=== PATIENT | female | born 1975 | race Caucasian/White ===

== ENCOUNTER → 2023-06-26 14:54 | Outpatient (REF) | payer OTHER, SELFPAY | LOC: HWRAD 14:54 | PROVIDERS: ATTENDING PHYSICIAN Obstetrics & Gynecology; FAMILY PHYSICIAN Family Medicine | DX: N93.9 Abnormal uterine and vaginal bleeding, unspecified (principal) | CPT/HCPCS: 76830; 76856 ==

== ENCOUNTER 2023-07-16 06:33 | Day surgery (SDC) | payer OTHER, SELFPAY ==
[2023-07-13 09:14] VITALS: BMI 34.4
[2023-07-13 10:10] LABS: % Basophils 0.6 % (0-2); % Eosinophils 2.1 % (0-6); % Immature Granulocytes 0.3 % (0-0.5); % Lymphocytes 27.1 % (20.5-51.1); % Monocytes 8.2 % (1.7-9.3); % Neutrophils 61.7 % (42.2-75.2); Absolute Eosinophils 0.2 10^3/uL (0-0.7); Absolute Lymphocytes 1.9 10^3/uL (1.2-3.4); Absolute Monocytes 0.6 10^3/uL (0.1-0.6); Absolute Neutrophils 4.4 10^3/uL (1.4-6.5); Mean Corp Hgb Conc. 33.3 g/dL (33.0-37.0); Mean Corpuscular Hgb 27.6 pg (27.0-31.0); Mean Corpuscular Volume 82.7 fL (81.0-99.0); Mean Platelet Volume 10.8 fL (7.4-10.4); Nucleated Red Blood Cells % 0 %; Platelet Count 270 10^3/uL (130-400); Red Blood Cell Count 5.08 10^6/uL (4.20-5.40); Red Cell Dist. Width 13.4 % (11.5-14.5); White Blood Cell Count 7.1 10^3/uL (4.8-10.8)
[2023-07-13 11:21] LABS: Beta HCG Quantitative < 2.39 mIU/ml
[2023-07-13 12:39] LABS: Blood Urea Nitrogen 22 mg/dl (7-17); Calcium 9.7 mg/dl (8.4-10.2); Carbon Dioxide 25 mmol/L (22-30); Chloride 105 mmol/L (98-107); Estimated Creatinine Clearance 122 ml/min; Glucose 80 mg/dl (70-99); Potassium 4.6 mmol/L (3.5-5.1); Sodium 136 mmol/L (135-145); eGFR > 60.00
[2023-07-16] VITALS (11 sets, daily range): BP systolic 97–128; BP diastolic 56–85; BMI 34.4
[2023-07-16] MEDS: NORMOSOL-R 1000 IV (10:55)
[2023-07-16] MEDS: TYLENOL 1000 MG PO (11:30)
--- NOTE | 2023-07-16 14:49 | W.IMMPOSTOP ---
Surgical Immed Post Op Note
-
Primary Surgeon: Gelacio López DO
Assisting Surgeon: none
Pre-op Diagnosis: Postmeopausal bleeding
Post-op Diagnosis: same
Procedure Performed: Hysteroscopy D&C
Anesthesia Type: general LMA Dr. Kearns
Specimen / Cultures: 1. ecc 2. endometrial curettings
Estimated Blood Loss: 2ml
Fluid deficit: 60ml NSS
Complications: none
Operative Findings: Uterine cavity normal atrophic appearance. No evidence of tumor, polyp or mass. Bilateral tubal ostia seen.
Counts correct times 2.
[2023-07-16] MEDS: SUBLIMAZE 25 MCG IV (15:18)
== END 2023-07-16 16:49 | disposition home or self-care (01) ==
LOC: SDS 06:33
PROVIDERS: ATTENDING PHYSICIAN Obstetrics & Gynecology; FAMILY PHYSICIAN Family Medicine
DX: N85.8 Other specified noninflammatory disorders of uterus (principal); N95.0 Postmenopausal bleeding
CPT/HCPCS: 58558; 88305; 36415; 80048; 84702; 85025; 86850; 86900; 86901

== ENCOUNTER → 2023-08-05 07:21 | Outpatient (REF) | payer OTHER, SELFPAY | LOC: MRI 07:21 | PROVIDERS: ATTENDING PHYSICIAN Student in an Organized Health Care Education/Training Program; FAMILY PHYSICIAN Family Medicine | DX: M25.572 Pain in left ankle and joints of left foot (principal) | CPT/HCPCS: 73721 ==

== ENCOUNTER → 2023-12-21 10:00 | Outpatient (REF) | payer OTHER, SELFPAY | LOC: HWWDC 10:00 | PROVIDERS: ATTENDING PHYSICIAN Obstetrics & Gynecology; FAMILY PHYSICIAN Family Medicine | DX: Z12.31 Encounter for screening mammogram for malignant neoplasm of breast (principal) | CPT/HCPCS: 77063; 77067 ==

== ENCOUNTER → 2024-03-07 13:46 | Outpatient (REF) | payer BC, SELFPAY | LOC: MRI 3T 13:46 | PROVIDERS: ATTENDING PHYSICIAN Physician Assistant Medical; FAMILY PHYSICIAN Family Medicine | DX: M25.562 Pain in left knee (principal) | CPT/HCPCS: 73721 ==

== ENCOUNTER → 2024-05-28 13:25 | Outpatient (REF) | payer BC, SELFPAY | LOC: HWRAD 13:25 | PROVIDERS: ATTENDING PHYSICIAN Physician Assistant Medical; REFERRING PHYSICIAN Obstetrics & Gynecology | DX: N95.0 Postmenopausal bleeding (principal) | CPT/HCPCS: 76830; 76856 ==

== ENCOUNTER 2024-07-02 06:06 | Day surgery (SDC) | payer BC, SELFPAY ==
[2024-06-27 11:49] LABS: % Basophils 0.7 % (0-2); % Eosinophils 2.2 % (0-6); % Immature Granulocytes 0.3 % (0-0.5); % Lymphocytes 32.6 % (20.5-51.1); % Neutrophils 55.2 % (42.2-75.2); Absolute Eosinophils 0.1 10^3/uL (0-0.7); Absolute Monocytes 0.5 10^3/uL (0.1-0.6); Absolute Neutrophils 3.3 10^3/uL (1.4-6.5); Hematocrit 42.1 % (37.0-47.0); Hemoglobin 14.3 g/dL (12.0-16.0); Mean Corpuscular Hgb 28.8 pg (27.0-31.0); Mean Corpuscular Volume 84.9 fL (81.0-99.0); Nucleated Red Blood Cells % 0 %; Platelet Count 299 10^3/uL (130-400); Red Blood Cell Count 4.96 10^6/uL (4.20-5.40); Red Cell Dist. Width 13.2 % (11.5-14.5)
[2024-06-27 12:16] LABS: Blood Urea Nitrogen 21 mg/dl (7-17); Calcium 9.7 mg/dl (8.4-10.2); Carbon Dioxide 26 mmol/L (22-30); Chloride 106 mmol/L (98-107); Glucose 80 mg/dl (70-99); Potassium 4.4 mmol/L (3.5-5.1); Sodium 144 mmol/L (135-145); eGFR > 60.00
[2024-06-27 12:32] LABS: Beta HCG Quantitative < 2.39 mIU/ml
[2024-06-27 14:12] VITALS: BMI 32.6
[2024-07-02] VITALS (11 sets, daily range): BP systolic 107–117; BP diastolic 59–76; BMI 32.6
[2024-07-02] MEDS: NORMOSOL-R/PLASMALYTE-A 1000 IV (07:08)
--- NOTE | 2024-07-02 08:09 | W.IMMPOSTOP ---
Surgical Immed Post Op Note
-
Primary Surgeon: Yareli López DO
Assisting Surgeon: none
Pre-op Diagnosis: Postmenopausal bleeding
Post-op Diagnosis: same
Procedure Performed: Hysteroscopy D&C
Anesthesia Type: general LMA Dr. Hoover
Specimen / Cultures: 1. endocervical curettings 2. endometrial curettings
Estimated Blood Loss: 5mL
Fluid deficit: 45mL NSS
Complications: none
Operative Findings: Uterus retroverted, cervix up behind the cervix. Cervix grossly normal appearance. uterus sounded to 7cm.
Endometrial lining is thin, no masses or lesions seen. Bilateral tubal ostia seen.
Counts correct times 2.
Stable to recovery.
[2024-07-02] MEDS: DILAUDID 0.25 MG IV (08:32)
[2024-07-02] MEDS: TYLENOL 650 MG PO (09:37)
== END 2024-07-02 10:58 | disposition home or self-care (01) ==
LOC: SDS 06:06
PROVIDERS: ATTENDING PHYSICIAN Obstetrics & Gynecology; FAMILY PHYSICIAN Family Medicine
DX: N85.8 Other specified noninflammatory disorders of uterus (principal); N95.0 Postmenopausal bleeding; N85.4 Malposition of uterus
CPT/HCPCS: 58558; 88305; 36415; 80048; 84702; 85025; 86850; 86900; 86901; 88341; 88342

== ENCOUNTER → 2024-08-07 07:29 | Outpatient (REF) | payer BC, SELFPAY | LOC: MRI 3T 07:29 | PROVIDERS: ATTENDING PHYSICIAN Obstetrics & Gynecology; FAMILY PHYSICIAN Family Medicine | DX: N95.0 Postmenopausal bleeding (principal) | CPT/HCPCS: 72197; A9575 ==

== ENCOUNTER 2024-08-26 06:28 | Day surgery (SDC) | payer BC, SELFPAY ==
[2024-08-22 11:04] LABS: Urine Albumin 1+ (Neg - Trace); Urine Bilirubin Negative (Negative); Urine Character Clear (Clear); Urine Color Yellow; Urine Glucose Negative (Negative); Urine Ketone Negative (Negative); Urine Leukocyte Negative (Negative); Urine Nitrite Negative (Negative); Urine Occult Blood 2+ (Negative); Urine Urobilinogen Negative (Neg - 1+)
[2024-08-22 11:07] LABS: % Basophils 0.8 % (0-2); % Eosinophils 1.5 % (0-6); % Immature Granulocytes 0.3 % (0-0.5); % Lymphocytes 25.4 % (20.5-51.1); Absolute Basophils 0.1 10^3/uL (0-0.2); Absolute Eosinophils 0.1 10^3/uL (0-0.7); Absolute Lymphocytes 1.5 10^3/uL (1.2-3.4); Absolute Monocytes 0.5 10^3/uL (0.1-0.6); Absolute Neutrophils 3.8 10^3/uL (1.4-6.5); Hematocrit 41.8 % (37.0-47.0); Hemoglobin 14.3 g/dL (12.0-16.0); Mean Corp Hgb Conc. 34.2 g/dL (33.0-37.0); Mean Corpuscular Hgb 28.5 pg (27.0-31.0); Mean Corpuscular Volume 83.3 fL (81.0-99.0); Mean Platelet Volume 10.4 fL (7.4-10.4); Nucleated Red Blood Cells % 0 %; Platelet Count 287 10^3/uL (130-400); Red Blood Cell Count 5.02 10^6/uL (4.20-5.40); Red Cell Dist. Width 13.2 % (11.5-14.5)
[2024-08-22 11:26] LABS: Urine Bacteria Many (Negative); Urine Mucus Moderate; Urine Red Blood Cell 0-2 /HPF (0-2); Urine Squamous Cell 0-2 /LPF (Few)
[2024-08-22 11:34] LABS: Blood Urea Nitrogen 17 mg/dl (7-17); Calcium 9.9 mg/dl (8.4-10.2); Carbon Dioxide 28 mmol/L (22-30); Chloride 109 mmol/L (98-107); Glucose 74 mg/dl (70-99); Potassium 4.4 mmol/L (3.5-5.1); Sodium 143 mmol/L (135-145); eGFR > 60.00
[2024-08-22 11:51] LABS: Beta HCG Quantitative < 2.39 mIU/ml
[2024-08-22 13:55] VITALS: BMI 34.3
--- NOTE | 2024-08-22 15:31 | PTCARENOTE ---
Patients 08/22 [facility]- Nadia @ Dr. Rosen office notified
--- NOTE | 2024-08-25 10:09 | PTCARENOTE ---
Urinalysis, urine C&S results from 08/22/24 reported to Nadia at Dr López's office.
[2024-08-26] VITALS (11 sets, daily range): BP systolic 97–139; BP diastolic 67–88; BMI 34.3
[2024-08-26] MEDS: NEURONTIN 300 MG PO (11:55)
[2024-08-26] MEDS: TYLENOL 1000 MG PO (11:55)
[2024-08-26] MEDS: NORMOSOL-R/PLASMALYTE-A 1000 IV (11:56)
[2024-08-26] MEDS: HEPARIN 5000 UNITS SC (12:15)
--- NOTE | 2024-08-26 17:21 | W.IMMPOSTOP ---
Surgical Immed Post Op Note
-
Primary Surgeon: Yareli López DO
Tipping Machine Operator Automatic: [id number] Eid
Pre-op Diagnosis: Recurrent postmenopausal bleeding
Post-op Diagnosis: same
Procedure Performed: Robotic assisted Total laparoscopic hysterectomy bilateral salpingo-oopherectomy, extensive lysis adhesions; cystoscopy.
Anesthesia Type: general ET Dr. Wang
Specimen / Cultures: uterus, cervix, bilateral fallopian tubes and bilateral ovaries.
Estimated Blood Loss: 10mL
Urine output: 100mL clear urine. Additional amount unable to calculate due to backfilling the bladder and cystoscopy.
Complications: none
Operative Findings: Normal sized uterus, completely adherent along anterior surface to abdominal wall from fundus down to bladder. Normal appearing bilateral fallopian tubes and bilateral ovaries. Colon grossly appeared normal. Some tenting up of
sigmoid along left pelvic sidewall. Bladder wall intact, no suture material. Bilateral ureteral orifice jets noted.
Counts correct times 2.
Stable to recovery.
[2024-08-26] MEDS: ZOFRAN 4 MG IV (17:24)
[2024-08-26] MEDS: BENADRYL 25 MG IV (17:38)
[2024-08-26] MEDS: DILAUDID 0.5 MG IV (17:53)
[2024-08-26] MEDS: ROXICODONE 5 MG PO (19:37)
== END 2024-08-26 20:01 | disposition home or self-care (01) ==
LOC: SDS 06:28
PROVIDERS: ATTENDING PHYSICIAN Obstetrics & Gynecology; FAMILY PHYSICIAN Family Medicine
DX: N95.0 Postmenopausal bleeding (principal); Q51.818 Other congenital malformations of uterus; D25.9 Leiomyoma of uterus, unspecified; N83.8 Other noninflammatory disorders of ovary, fallopian tube and broad ligament; N73.6 Female pelvic peritoneal adhesions (postinfective)
CPT/HCPCS: 58571; 88307; 36415; 80048; 81003; 81015; 84702; 85025; 87077; 87086; 87186

== ENCOUNTER → 2024-12-22 09:52 | Outpatient (REF) | payer BC, SELFPAY | LOC: HWWDC 09:52 | PROVIDERS: ATTENDING PHYSICIAN Obstetrics & Gynecology; FAMILY PHYSICIAN Family Medicine | DX: Z12.31 Encounter for screening mammogram for malignant neoplasm of breast (principal) | CPT/HCPCS: 77063; 77067 ==